=== PATIENT | male | born 1965 | race Caucasian/White ===

== ENCOUNTER 2025-05-15 05:33 | Observation (INO) ==
--- NOTE | 2025-04-12 08:20 | PAT Medication Instructions ---
Medication Instructions Date of Service April 12, 2025 Home Medications multivitamin 1 tab PO DAILY DO NOT take the morning of surgery multivitamin 1 tab PO DAILY MORNING OF SURGERY: NOTHING TO EAT OR DRINK AFTER MIDNIGHT Take morning of surgery With a small sip of water, OTHERWISE NOTHING TO EAT OR DRINK AFTER MIDNIGHT: Other Notes If you have any questions please call us at [phone] or [phone] or [phone] or [phone]
--- NOTE | 2025-04-23 16:04 | Anesthesiology Consultation ---
Date of Service April 23, 2025 Assessment & Plan (1) Encounter for pre-operative examination: Chart Review Chart Review: Acceptable Risk for Surgery and Patient seen in Pre Admission Testing Pt currently scheduled as 23 hours observation. If surgeon decides to change patient to Same Day Joint, patient would be acceptable risk for TKA, pending patient is motivated, has good support and surgeon's office completes Same Day [facility] Program preop requirements. Per PAT appt on 04/23/25, no recent illness/disease exposures, illness related symptoms, or recent illness/disease positive tests. Will leave to surgeon's discretion if preop Covid testing needed Teaching & Discussion Pre-Anesthesia Teaching/Discussion Notes: Instructed NPO after midnight before surgery,except medications with 15 cc of water. Medication instructions provided according to the PAT guidelines. Additional Notes (PAT visit was completed remotely while patient was in PAT office) History Surgery Operation Date: 05/15/25 07:00 Proposed Procedures p Left Total Knee Arthroplasty - Vishal Odell MD Height/Weight Height: 5 ft 10 in Weight: 124.1 kg Allergies Allergy/AdvReac Type Severity Reaction Status Date / Time Penicillins Allergy Intermediate Unknown Verified 04/12/25 07:33 cefuroxime AdvReac Unknown STOMACH Verified 04/12/25 07:33 UPSET Medications Home Medications Medication Instructions Recorded Confirmed Last Taken multivitamin 1 tab PO DAILY 04/12/25 04/12/25 Unknown Past Medical History Medical History History of COVID-19 2019, resolved Hx of migraines occasional, "maybe every 3-4 months" Exercise / Class Metabolic Activity II 4-5 Yardwork/Stairs/Walk up hill (one flight of stairs - no chest pain or SOB ) Past Family History Family History Other Stroke Past Surgical History Surgical History History of esophagogastroduodenoscopy (EGD) History of meniscectomy of left knee Hx of colonoscopy (2019) Hx of wisdom tooth extraction x1 tooth Past Anesthesia History No Hx of Anesthesia Complications and No Family Hx of Anesthesia Complications History of PONV No Hx of PONV and No Hx of Motion Sickness Social History Smoking Status: Never smoker Do You Dip or Chew Tobacco: No Hx Alcohol Use: Yes alcohol intake frequency: holidays/special occasions only Hx Substance Use: No substance use type: does not use Review of Systems - Occ heartburn- relieved with Tums Patient denies chest pain, shortness of breath, dyspnea on exertion, cough, wheezing, palpitations. No hx of seizures, stroke, AK, apnea/snoring. No hx of blood clots or blood transfusions Physical Exam Vital Signs VITALS (done by [facility] slab polisher Liset Marx) BP 142/84 P 72bpm TEMP 97.8 SP02 98% on RA Physical exam performed by Dr Rashad AYONDE Mallampati Class: I (I-II) Missing molar Neck neck extension not limited Respiratory normal respiratory effort; no respiratory distress Auscultation: lungs clear to auscultation bilaterally; no wheezes Cardiovascular Rate/Rhythm: regular rate and regular rhythm Heart Sounds: no murmur Vessels: no carotid bruit Musculoskeletal Spine: no pain with cervical ROM and no lumbar spinal tenderness Psychiatric Orientation: alert Lab Results Anesthesia Preop Results Results Anesthesia Widget: WBC 6.83 K/ul (4.8-10.8) 04/23/25 Hgb 15.2 g/dL (14.0-18.0) 04/23/25 Hct 43.3 % (42.0-52.0) 04/23/25 Plt 189 K/uL (130-400) 04/23/25 Na 136 mmol/L (136-145) 04/23/25 K 4.3 mmol/L (3.5-5.1) 04/23/25 Cl 101 mmol/L (98-107) 04/23/25 CO2 28 mmol/L (21-32) 04/23/25 BUN 16 mg/dl (6-23) 04/23/25 Creat 0.90 mg/dl (0.6-1.4) 04/23/25 Glucose Level 99 mg/dl (70-99(Fasting)) 04/23/25 PT 11.3 Seconds (9.0-12.0) 04/23/25 PTT 33 Seconds (21-31) H 04/23/25 INR 1.1 (0.9-1.1) 04/23/25 Blood Type O Positive 04/23/25 Antibody Screen NEGATIVE 04/23/25 Testing Laboratory Results Minimally elevated PTT - will leave to anesthesiologist discretion if repeat PTT needed DOS Electrocardiogram Date: 04/23/25 SR with 1st degree AVB at 71bpm RBBB Chest X-Ray Date: 04/23/25 Findings: + NAD
--- NOTE | 2025-05-07 08:40 | History & Physical Report ---
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 He is failed conservative treatment. He would like to proceed with left knee replacement. Plan: We are going to take him to the operating room and do a left total knee replacement. The risks and bents of this procedure explained. Informed consent was obtained. He is moon plan to stay in the hospital overnight and discharge postop day 1. Will use aspirin for DVT prophylaxis. (2) Right knee DJD: History of Present Illness Chief Complaint: Bilateral knee pain and discomfort left side greater than the right.. Primary Care Provider: Arleen Stuart . The patient is a 59-year-old gentleman who presents for follow-up and treatment of his knees. He has several year history of increasing knee pain discomfort described to the gotten worse over time. The left knee bothers him more than the right. He has been through extensive conservative treatment provided by Dr. Jung in the past. He does have a history of a knee scope done by Dr. Hitchcock 5 years or so ago. It helped him for a short period of time. He had injections which do help but they become less successful over time. He started to be limited by his knee pain discomfort. The pain is fairly global in nature. M oderate amount of swelling. Allergies Allergy/AdvReac Type Severity Reaction Status Date / Time Penicillins Allergy Intermediate Unknown Verified 04/12/25 07:33 cefuroxime AdvReac Unknown STOMACH Verified 04/12/25 07:33 UPSET Home Medications Medication Instructions Recorded Confirmed Type multivitamin 1 tab PO DAILY 04/12/25 04/12/25 History Past Med/Surg History Problem List Encounter for pre-operative examination Left knee DJD Right knee DJD Left knee pain DJD (degenerative joint disease) of knee Medical History Hx of migraines occasional, "maybe every 3-4 months" History of COVID-19 2019, resolved Surgical History History of esophagogastroduodenoscopy (EGD) Hx of colonoscopy (2019) Hx of wisdom tooth extraction x1 tooth History of meniscectomy of left knee Family History Other Stroke Social History Smoking Status: Never smoker Second Hand Exposure: No; Do You Dip or Chew Tobacco: No; Hx Alcohol Use: Yes Hx Substance Use: No Preferred Language: [place] Communication Ability: Effective 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 Physical Exam . Physical examination reveals a pleasant middle-age male. Looks be in excellent health. Examination both knees reveal patient ambulates independently. Examination left knee reveals a slight varus alignment to his knee. He has got well-healed portal sites from the previous knee scope. Small knee effusion. Tender medially. Range of motion 0-1 25. No instability. No pain with hip motion. Constitutional WD/WN, vitals as above Respiratory normal respiratory effort, lungs clear to auscultation Cardiovascular RRR, no murmur, no edema Gastrointestinal (Abdomen) normal bowel sounds, soft, nontender, no hepatosplenomegaly Results & Data Results & Data Laboratory Results . Diagnostic Findings . X-rays of the left knee were reviewed. She has advanced left knee DJD. He has complete loss of his medial joint space. Little bit of tibiofemoral subluxation. Pretty advanced disease on the right side as well. PG Care Time/CCT Total # of Minutes Spent Total Time Spent with Patient: Total time spent is greater than 50% in coordination of care (as documented) at patient's floor/unit and/or counseling patient: Coding Level of Care Code None Diagnoses Left knee DJD M17.12 Right knee DJD M17.11
[2025-05-15] MEDS: LR 500ML BOLUS, THEN 15ML/HR IV SCH (06:10)
[2025-05-15] MEDS: LR 60ML/HR IV SCH (06:10)
[2025-05-15] MEDS: ACETAMINOPHEN 500 MG TAB PO SCH ×2 (06:11→13:34)
[2025-05-15] MEDS: FAMOTIDINE 20 MG TAB PO SCH (06:11)
[2025-05-15] MEDS: dexAMETHasone**PF** 10 MG/ML VIAL IV SCH (06:11)
[2025-05-15] MEDS: METOCLOPRAMIDE HCL 10 MG TABLET PO SCH (06:11)
[2025-05-15] MEDS: CeleBREX 200 MG CAP PO SCH (06:11)
[2025-05-15] MEDS ORDERED: LIDOCAINE 2% 2 ML VIAL/AMP(20MG/ML) INFIL ONE (06:27)
[2025-05-15] MEDS ORDERED: MIDAZOLAM HCL 1 MG/ML 2ML VIAL ONE (06:27)
[2025-05-15] MEDS ORDERED: ROPIVACAINE 0.5% 5 MG/ML 30 ML VIAL ONE (06:30)
[2025-05-15] MEDS ORDERED: BUPIVACAINE 0.5 % 5 MG/1 ML PF 10ML VIAL ONE (06:30)
[2025-05-15] MEDS ORDERED: ATROPINE SULFATE 0.1 MG/ML 10ML SYR IV PRN (06:31)
[2025-05-15] MEDS ORDERED: PROPOFOL IV EMULSION 10 MG/ML 100 ML VIAL IV ONE (06:34)
[2025-05-15] MEDS ORDERED: DexMEDEtomidine HCL IV 100 MCG/ML VIAL IV ONE (06:39)
--- NOTE | 2025-05-15 06:43 | History & Physical Bridge Note ---
Date of Service May 15, 2025 History & Physical Bridge Note I have examined the patient, reviewed the History & Physical and in the interval since the performance of the History & Physical I have noted the following changes of clinical significance: no changes noted
[2025-05-15] MEDS: ceFAZolin 3000MG 3,000 MG/72.5 ML BAG IV SCH (07:00)
[2025-05-15] MEDS: ORTHO JOINT ANESTHETIC ONE (07:35)
[2025-05-15] MEDS: ROPIV 0.5% 246mg, Ketorolac 30mg, EPINEPHrine 0.5mg in NSS INFIL SCH (07:35)
[2025-05-15] MEDS ORDERED: ONDANSETRON INJ 2 MG/ML 2 ML VIAL ONE (08:16)
[2025-05-15] MEDS ORDERED: PHENYLEPHRINE 100MCG/ML 5ML SYR ONE (08:38)
--- NOTE | 2025-05-15 09:03 | Operative Report ---
PG Post Operative Report Pre & Post Diagnosis Operation Date: 05/15/25 07:00 Pre-Op Diagnosis: Left Knee Osteoarthritis Post-Op Diagnosis: Left Knee Osteoarthritis I identified the patient and participated in the time-out.: Yes Procedure Operation Date: 05/15/25 07:00 Actual Procedures p Left Total Knee Arthroplasty, Cemented(Left) - Vishal Odell MD Surgeon Vishal Odell MD Dinkey Locomotive Operator Farzad Chaidez PA-C Estimated Blood Loss 50 Findings Consistent with Post-Op Diagnosis Specimens Left knee sent for pathology. Anesthesia Type Spinal MAC Complications none Disposition Accompanied Patient To Recovery: No Indications The patient is a 59-year-old fairly active gentleman who had a several year history of increasing left knee pain discomfort that became less responsive to conservative care. X-rays show advanced knee arthritis. He elected proceed with total knee arthroplasty. Description of Procedure Operative implants consist of: 1. Biomet Vanguard size 70 left posterior stabilized femoral component. 2. Biomet size 83 tibial tray. 3. 12 mm posterior stabilized polyethylene insert. 4. 34 x 8-1/2 all poly patella. The patient was taken to the operating room, identified, placed on the operating table in the supine position. All contact areas were appropriately padded. IV antibiotics were provided by anesthesia team. A spinal anesthetic and adductor canal block had been provided in the holding area. A left thigh tent was then placed. Left lower extremity was then prepped and draped in usual sterile fashion. The left leg was elevated and exsanguinated with use of an Esmarch and a tourniquet placed at 300 mmHg. An anterior approach of the left knee was then performed to longitudinal incision centered over the patella. Sharp dissection was Through subcutaneous tissue down the extensor mechanism. A medial parapatellar arthrotomy incision was made. Some subperiosteal dissection carried out medially. The fat pad was resected from the patella tendon. Lateral patellofemoral ligament was released. Patella subluxated laterally and the knee was flexed. The osteophytes taken off distal femur. The ACL and PCL were then released from the distal femur and the tibia subluxated anteriorly. The external tibial LYMErix was then placed on the interface the tibia and adjusted 14 mm medially. The proximal tibial cut was made to remove about a millimeter bone from most deficient aspect medial tibial plateau. The tibia sized to a size 83. Some osteophytes taken off medially. Attention then drawn the femur. The distal femur Tanzer sharp drill. Intramedullary canal was suction. A left 6 degree valgus cutting guide was placed. The distal femoral cutting block was pinned in place. Distal femoral cut was made take an additional 3 mm of bone o ff distal femur. The femur was then sized to a size 70. The AP cutting block was pinned parallel to the epicondylar axis which was about 6 degrees of external rotation. The anterior cut, anterior chamfer, posterior cut, posterior chamfer cuts were made. The box cutting guide was placed and just slightly laterally. The box cut was made. The knee was flexed. The remnants of the medial and lateral menisci were excised. The osteophytes taken off the posterior aspect of femur. A trial femoral component was placed. The tibial tray was pinned in Myriam external rotation and the drill and stem punch used to create defect in proximal tibia for the tibial tray. Knee was then trialed and the 12 mm insert fit most appropriately. Attention drawn the patella. The patella was cleaned of all soft tissue. Patella thickness measured 25 mm in thickness was cut down to 15. Was sized to a size 34 patella. The lug holes were drilled for 34 patella. The lateral osteophytes removed. Patella button was placed. Knee was taken through range of motion and the patella tracked nicely with no thumbs test. Attention was then drawn to her placed in permanent components. All trial components were removed. Bone plug was placed in the distal limb limb of blood loss. Double batch Palacos G cement was mixed. Biomet Vanguard size 70 left posterior stabilized femoral component, size 83 tibial tray, 12 mm posterior stabilized polyethylene insert, and a 34 x 8 Knauf all poly patella then cemented in place. The knee was brought out in full extension till cement hardened. Final cement check was then performed. The pericapsular tissues were injected with a total of 100 cc of Ortho mix. The patient did receive 1 g tranexamic acid. The tourniquet was then let down for final tourniquet time 62 minutes. Hemostasis assured with electrocautery. Extensor [place] then closed with combination 1 PDS suture and a 1 Vicryl suture in a [id number] fashion. Extensor [place]clomen checked found to be intact to the subcutaneous tissues then closed with 2 Dexon suture in a buried interrupted fashion skin was closed skin aimee. Leg was then cleaned and dried and a sterile dressing with Xeroform, 4 fours, sterile ABD pad, sterile cast padding, Santos bandage were applied. Patient then transferred to the recovery room in stable condition. Patient tolerated procedure well and no complications. Farzad Chaidez, my physician diet assistant, was present for the entire procedure. His assistance was essential and required for appropriate patient positioning, prepping and draping, surgical exposure, performing the technical details of the operation, placement the implants, closure of the wound, and placement of the sterile bandage. I attest to the content of the Intraoperative Record and any orders documented therein. Any exceptions are noted below.
--- NOTE | 2025-05-15 09:20 | XRay Report ---
TWO VIEWS LEFT KNEE CLINICAL HISTORY: Postoperative examination. FINDINGS: AP and crosstable lateral portable views of the left knee are obtained. A left knee arthrop lasty is in near anatomic alignment. There has been undersurface remodeling of the patella. No acute fracture is seen. There are expected postoperative changes around the knee including skin clips, soft tissue edema, and subcutaneous gas. IMPRESSION: Expected postoperative changes status post left knee arthroplasty. No acute fracture is s een. ACT 112: Negative or not required by law. Electronically signed by: Fadi Schultz M.D. 05/15/2025 9:19 AM
[2025-05-15] MEDS: ONDANSETRON INJ 2 MG/ML 2 ML VIAL IV PRN (09:41)
[2025-05-15] MEDS ORDERED: MAGNESIUM HYDROXIDE SUSP 30 ML UDC PO PRN (11:03)
[2025-05-15] MEDS ORDERED: diphenhydrAMINE Capsule 25 MG CAP PO PRN (11:03)
[2025-05-15] MEDS ORDERED: HYDROmorphone INJ 0.5 MG/0.5 ML SYR IV PRN (11:03)
[2025-05-15] MEDS ORDERED: NALOXONE HCL 0.4 MG/1 ML VIAL/CARP IV PRN (11:03)
[2025-05-15] MEDS ORDERED: METOCLOPRAMIDE HCL INJ 5 MG/ML 2 ML VIAL IV PRN (11:03)
[2025-05-15] MEDS ORDERED: ONDANSETRON INJ 2 MG/ML 2 ML VIAL IV PRN (11:03)
[2025-05-15] MEDS: SODIUM CHLORIDE 0.9% 1,000 ML IV SCH (11:56)
--- NOTE | 2025-05-15 13:19 | Anesthesiology Progress Note ---
Date of Service May 15, 2025 Anesthesia Post Procedure Vital Signs Vital Signs: Temp Pulse Pulse Resp BP Pulse Ox O2 Del Method 05/15/25 12:55 36.5 C 82 16 109/72 96 Room Air 05/15/25 12:27 36.5 C 82 16 115/77 97 Room Air 05/15/25 11:50 36.6 C 86 16 112/73 97 Room Air 05/15/25 11:34 86 16 126/81 94 Room Air 05/15/25 11:00 36.2 C L 84 18 107/69 96 Room Air 05/15/25 10:45 87 13 106/72 92 Room Air 05/15/25 10:30 86 18 112/68 93 Room Air 05/15/25 10:15 86 19 106/73 93 Room Air 05/15/25 10:00 83 13 112/75 94 Room Air 05/15/25 09:55 83 16 108/72 95 Room Air 05/15/25 09:45 36.5 C 81 18 112/77 94 Room Air 05/15/25 09:35 83 22 112/74 94 Room Air 05/15/25 09:25 80 18 98/73 L 94 Room Air 05/15/25 09:15 80 13 110/67 98 Oxymask 05/15/25 09:05 83 18 100/62 96 Oxymask 05/15/25 08:58 36.1 C L 80 14 109/65 97 Oxymask 05/15/25 05:56 36.8 C 85 20 139/87 97 Room Air O2 Flow Rate 05/15/25 12:55 05/15/25 12:27 05/15/25 11:50 05/15/25 11:34 05/15/25 11:00 05/15/25 10:45 05/15/25 10:30 05/15/25 10:15 05/15/25 10:00 05/15/25 09:55 05/15/25 09:45 05/15/25 09:35 05/15/25 09:25 05/15/25 09:15 2 05/15/25 09:05 6 05/15/25 08:58 6 05/15/25 05:56 Notes Mental Status: alert / awake / arousable Patient Amnestic to Procedure: Yes Nausea / Vomiting: adequately controlled Pain: adequately controlled Airway Patency, RR, SpO2: stable & adequate BP & HR: stable & adequate Hydration State: stable & adequate Neuraxial Anesthesia: was administered and sensory block is resolving Anesthetic Complications: no major complications apparent
[2025-05-15] MEDS: KETOROLAC 30 MG/ML VIAL IV SCH (13:34)
[2025-05-15] MEDS: DOCUSATE SODIUM 100 MG CAP PO SCH (13:35)
[2025-05-15] MEDS: SENNA 8.6 MG TAB PO SCH ×2 (13:35→22:06)
[2025-05-15] MEDS: ASPIRIN 81 MG ECTAB PO SCH (13:59)
[2025-05-15] MEDS: MULTIVITAMIN TAB PO SCH (14:00)
[2025-05-15] MEDS: TRANEXAMIC ACID / 0.7% NACL 1,000 MG/100 ML BAG IV SCH (15:43)
[2025-05-15] MEDS: ASCORBIC ACID 500 MG TAB PO SCH (15:54)
[2025-05-15] MEDS ORDERED: Nursing to Pharmacy Communication SCH (16:30)
[2025-05-15] MEDS: TAMSULOSIN HCL 0.4 MG CAP PO SCH (17:59)
[2025-05-16 06:47] LABS: Hematocrit (blood only) 34.4 % (42.0-52.0); Hemoglobin 12.0 g/dL (14.0-18.0); Mean Corpuscular Hemoglobin 29.6 pg (25.0-34.0); Mean Corpuscular Volume 84.9 fL (80.0-100.0); Platelet Count 166 K/uL (130-400); RDW Standard Deviation 41.3 fL (36.4-46.3); Red Blood Count 4.05 M/uL (4.70-6.10); White Blood Count 10.43 K/ul (4.8-10.8)
[2025-05-16 07:09] VITALS: BP 130/88; PULSE 71; RESP 14; TEMP 98.1; O2SAT 97
[2025-05-16 07:33] LABS: Anion Gap 7.0 (3-11); Blood Urea Nitrogen 15.0 mg/dl (6-23); Calcium 8.7 mg/dl (8.6-10.3); Carbon Dioxide 28.0 mmol/L (21-32); Chloride 103.0 mmol/L (98-107); Creatinine Clr Calc Pharmacy 127.9 ml/min; Glucose 94.0 mg/dl (70-99(Fasting)); Potassium 4.2 mmol/L (3.5-5.1); Sodium 138.0 mmol/L (136-145)
[2025-05-16] MEDS: MULTIVITAMIN TAB PO SCH (08:11)
[2025-05-16] MEDS: dexAMETHasone 10 MG in SYRINGE 0 ML IV SCH (08:11)
[2025-05-16] MEDS: ALUMINUM/MAGNESIUM SUSP 30 ML UDC PO PRN (09:26)
--- NOTE | 2025-05-16 10:11 | Orthopedic Progress Note ---
Date of Service May 16, 2025 Assessment & Plan (1) Status post total left knee replacement: * Continue Current Treatment * Disposition: home * Daily treatment: Physical Therapy/ Occupational Therapy per protocol * Weight bearing status: WBAT * Continue to monitor for ABLA * Pain control * DVT prophylaxis, ASA * Office/hospital f/u 2 weeks for progress check and staple/suture removal * Plan for discharge today pending PT/OT clearance Subjective . Active Problems: S/p left TKA POD 1 59 y/o male s/p left TKA. Doing well overall, pain managed and improved function. Denies fever/chills, chest pain/SOB, nausea/vomiting. Otherwise no complaints. Review of Systems All systems reviewed & are unremarkable except as noted in HPI & below. Physical Exam . * General: Alert and oriented, no acute distress * Constitutional: well-developed, well-nourished. * Respiratory: Normal respiratory effort, no distress * Gastrointestinal: No tenderness to palpation, no rigidity or guarding. * Skin: No rash or lesion. * Neurologic: Grossly normal * Musculoskeletal: left knee surgical dressing with scant bloody drainage, not removed for exam. Otherwise no obvious deformity or overlying skin changes RLE. Diffuse TTP distal thigh and knee region. Otherwise no specific tenderness of proximal thigh, lower leg, foot/ankle. AROM knee flexion 100 degrees. AROM foot/ankle intact. Sensation intact plantar/dorsal foot. Brisk capillary refill. Results & Data Results & Data Laboratory Results . Diagnostic Findings . PG Care Time/CCT Total # of Minutes Spent Total Time Spent with Patient: Total time spent is greater than 50% in coordination of care (as documented) at patient's floor/unit and/or counseling patient: Coding Level of Care Code 89113 Post Operative Follow-Up Diagnoses Status post total left knee replacement Z96.652
== END 2025-05-16 12:00 | disposition home health service (06) ==
LOC: PACUINP 05:33 → ASU 05:33 → 3E 12:09